=== PATIENT | female | born 1940 | race Caucasian/White ===

== ENCOUNTER 2017-05-31 18:01 | Inpatient (IN) | payer OTHER ==
[~2017-05-31] VITALS: Ht 160 cm; Wt 60.8 kg
--- NOTE | ~2017-05-31 | EKG ---
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 06/01/17 0745 Derek Vail MD, [facility] /EPI
[2017-05-31 18:05] VITALS: BP 130/40
[2017-05-31] MEDS ORDERED: LOVASTATIN 20 M20 MG PO (18:09)
[2017-05-31] MEDS ORDERED: CALCIUM 500 +1 EAC5 PO (18:09)
[2017-05-31] MEDS ORDERED: VITAMIN D5000 UNIT PO (18:09)
[2017-05-31] MEDS ORDERED: FISH OIL 1,001000 M2 PO (18:09)
[2017-05-31] MEDS ORDERED: XANAX 0.5 MG0.5 MG PO (18:10)
[2017-05-31 19:58] LABS: HEMATOCRIT 40.4 % (37.0-47.0); HEMOGLOBIN 13.6 gm/dL (12.0-15.0); MCHC 33.6 g/dL (28.0-37.0); MCV 89.2 fL (80.0-100.0); PLATELET COUNT 172 thou/uL (150-400); RBC 4.53 mil/uL (4.20-5.00); RDW 14.1 % (10.5-14.5); WBC 4.3 thou/uL (4.0-11.0)
[2017-05-31 20:04] LABS: ANION GAP 8 mmol/L (7-16); BUN 12 mg/dL (7-18); CALCIUM 8.9 mg/dL (8.5-10.1); CHLORIDE 104 mmol/L (98-107); CO2 28 mmol/L (21-32); GLUCOSE 95 mg/dL (74-106); POTASSIUM 3.8 mmol/L (3.5-5.1); SODIUM 140 mmol/L (136-145)
[2017-05-31 20:10] LABS: TROPONIN-I < 0.04 ng/mL (<0.06)
[2017-05-31 20:19] LABS: ABSOLUTE NEUTROPHILS 3.4 thou/uL (1.4-8.2); ANISOCYTOSIS 1+; POLYCHROMASIA OCCASIONAL
[2017-05-31 21:05] LABS: URINE BILIRUBIN NEGATIVE (Negative); URINE BLOOD 2+ (Negative); URINE CLARITY CLEAR; URINE COLOR YELLOW; URINE GLUCOSE-RANDOM* NEGATIVE (Negative); URINE KETONES NEGATIVE (Negative); URINE LEUKOCYTES-REFLEX NEGATIVE (Negative); URINE PROTEIN (DIPSTICK) NEGATIVE (Negative); URINE UROBILINOGEN 0.2 E.U./dl (0.2-1.0)
[2017-05-31 21:07] LABS: URINE NITRITE-REFLEX POSITIVE (Negative)
[2017-05-31 21:14] LABS: BACTERIA-REFLEX >30 Many /HPF (None Seen); CASTS None Seen /LPF (None Seen); SQUAMOUS 0-3 Few /LPF (0-3); URINE RBC 0-2 Rare /HPF (0-2); URINE WBC-REFLEX 0-5 Rare /HPF (0-5)
[2017-05-31 21:15] LABS: CRYSTALS None Seen /LPF (None Seen)
[2017-06-01 15:12] VITALS: BP 104/54
[2017-06-01 18:59] VITALS: BP 116/62
[2017-06-02 03:51] VITALS: BP 123/63
[2017-06-02 08:09] VITALS: BP 122/61
[2017-06-02 17:46] VITALS: BP 122/61
[2017-06-02 20:00] VITALS: BP 107/60
[2017-06-03 05:30] VITALS: BP 107/62
[2017-06-03 07:10] VITALS: BP 117/65
[2017-06-03 12:13] LABS: ALBUMIN 3.2 g/dL (3.4-5.0); ANION GAP 9 mmol/L (7-16); BUN 13 mg/dL (7-18); CALCIUM 9.1 mg/dL (8.5-10.1); CHLORIDE 104 mmol/L (98-107); CO2 27 mmol/L (21-32); CREATININE 0.9 mg/dL (0.6-1.0); GLUCOSE 102 mg/dL (74-106); MAGNESIUM 1.9 mg/dL (1.8-2.4); POTASSIUM 3.5 mmol/L (3.5-5.1); SGOT 37 U/L (15-37); SGPT 26 U/L (30-65); SODIUM 140 mmol/L (136-145); TOTAL BILIRUBIN 0.2 mg/dL (<0.1-1.0); TOTAL PROTEIN 6.7 g/dL (6.4-8.2)
[2017-06-03 12:34] LABS: CHOLESTEROL 196 mg/dL (<200); HDL CHOLESTEROL 34 mg/dL (>40); LDL CHOLESTEROL 140 mg/dL (<100); TC:HDL 5.8 Ratio (Not establshd); TRIGLYCERIDE 111 mg/dL (<150); VLDL 22 mg/dL (<40)
[2017-06-03 13:13] LABS: TSH 1.737 uIU/mL (0.358-3.740)
[2017-06-03 16:00] VITALS: BP 96/62
[2017-06-03 20:01] VITALS: BP 98/56
[2017-06-03 21:06] LABS: GLYCOHEMOGLOBIN (HGB A1C) 5.7 % (4.8-5.6)
[2017-06-04] VITALS: BP 105/66
[2017-06-04 04:00] VITALS: BP 105/59
[2017-06-04] MEDS ORDERED: KEFLEX500 M2 PO (09:43)
[2017-06-04 10:13] VITALS: BP 101/58
== END 2017-06-04 13:33 | disposition home health service (06) | DRG 689 ==
LOC: ER 18:01 → EROBS 21:58 → 4E 21:58 → EROBS 06-01 13:00 → 4E 06-01 14:50
PROVIDERS: Emergency Medicine; Registered Nurse
DX: N39.0 Urinary tract infection, site not specified (principal); E43 Unspecified severe protein-calorie malnutrition; M81.0 Age-related osteoporosis without current pathological fracture; M19.90 Unspecified osteoarthritis, unspecified site; F17.210 Nicotine dependence, cigarettes, uncomplicated; B96.20 Unspecified Escherichia coli [E. coli] as the cause of diseases classified elsewhere; E78.5 Hyperlipidemia, unspecified; Z71.6 Tobacco abuse counseling; Z88.6 Allergy status to analgesic agent
CPT/HCPCS: 10084

== ENCOUNTER 2020-05-14 15:32 | Emergency (ER) | payer OTHER ==
[~2020-05-14] VITALS: Ht 162.6 cm; Wt 63.5 kg
[~2020-05-14 15:32] MED LIST: CALCIUM 500 +1 EAC5 PO; FISH OIL 1,001000 M2 PO; KEFLEX500 M2 PO; LOVASTATIN 20 M20 MG PO; VITAMIN D5000 UNIT PO; XANAX 0.5 MG0.5 MG PO
[2020-05-14] MEDS ORDERED: DOXYCYCLINE 10100 MG PO (16:55)
[2020-05-14] MEDS ORDERED: VANACOF DM LIQ240 ML PO (16:55)
[2020-05-14] MEDS ORDERED: PREDNISONE 20 M20 M1 PO (16:55)
[2020-05-14] MEDS ORDERED: PROAIR HFA8.5 GM INH (16:55)
[2020-05-14 17:25] VITALS: BP 118/76
== END 2020-05-14 17:26 | disposition home or self-care (01) ==
LOC: ER 15:32
DX: J40 Bronchitis, not specified as acute or chronic (principal); Z79.899 Other long term (current) drug therapy; Z88.6 Allergy status to analgesic agent; Z20.822 Contact with and (suspected) exposure to COVID-19